=== PATIENT | female | born 1970 | race Caucasian/White ===

== ENCOUNTER → 2024-10-01 | Outpatient (CLI) | payer BC ==
--- NOTE | 2024-10-01 14:24 | MR ---
EXAMINATION TYPE: MR knee RT wo con DATE OF EXAM: 10/01/2024 7:20 AM COMPARISON: None. CLINICAL INDICATION: Female, 54 years old with history of S83.289 TEAR OF LAT MENS, CUR INJ, Right kn ee pain x 1 yr, no trauma. IV Contrast: cc (None if empty) TECHNIQUE: Multiplanar, multisequence imaging of the right knee is performed without IV contrast. FINDINGS: There is no bone contusion or fracture. There is a small joint effusion. There are clefts in the lateral patellar cartilage but no underlying osteal defect. The cruciate and collateral ligaments are intact. There is a 4.0 x 27.1 x 19.1 mm multiloculated and septated para meniscal cyst laterally. It is assoc iated with a large horizontal tear of the anterior horn and body of the lateral meniscus and the medi al meniscus shows mild central degenerative signal but no discrete tear. The cruciate and collateral ligaments are intact. Quadriceps and patellar tendons are intact IMPRESSION: 1.Large tear of the lateral meniscus with a large loculated meniscal cyst as described above. 2. Small joint effusion. 3. Focal fissuring of the lateral patellar cartilage. 4. No significant thinning of the articular cartilages of all 3 compartments of the knee. [facility], , 10/01/2024 2:22 PM
== END | disposition home or self-care (01) ==
LOC: RADMRIMAIN 06:29 → MERGE 07:00
PROVIDERS: ATTEND Orthopaedic Surgery
DX: S83.281A Other tear of lateral meniscus, current injury, right knee, initial encounter (principal); M25.461 Effusion, right knee; M23.061 Cystic meniscus, other lateral meniscus, right knee; X58.XXXA Exposure to other specified factors, initial encounter